=== PATIENT | female | born 1955 | race Caucasian/White ===

== ENCOUNTER 2017-03-15 09:35 | Observation (INO) | payer OTHER ==
[~2017-03-15] VITALS: Ht 157.5 cm; Wt 108.0 kg
[~2017-03-15 09:35] MED LIST: BIOTIN2500 MCG PO; CALCIUM600 MG PO; CENTRUM SILVER1 EAC3 PO; HYDROCHLOROTHIA25 MG PO; LISINOPRIL20 MG PO; PROBIOTIC & AC1 EACH PO; VITAMIN B-122500 MCG PO
[2017-03-15] MEDS ORDERED: HYDROMORPHONE 1MG/1ML INJ IV STA (09:50)
[2017-03-15] MEDS ORDERED: ONDANSETRON HCL INJ 2 MG/ML VIAL IV STA ×2 (09:50→12:16)
[2017-03-15] MEDS ORDERED: SODIUM CHLORIDE 0.9% 1000ML 1,000 ML IV SCH ×2 (10:00→12:46)
[2017-03-15] MEDS ORDERED: HYDROMORPHONE 2MG/ML INJ ONE (10:09)
[2017-03-15 10:56] LABS: BASOPHILS # (AUTO) 0.1 (0.0-0.1); BASOPHILS % 0.6 % (0.0-1.0); EOSINOPHILS # (AUTO) 0.2 (0.0-0.4); EOSINOPHILS % 2.2 % (0.0-6.0); HEMATOCRIT 43.9 % (34.2-44.1); HEMOGLOBIN 14.6 g/dL (12.0-16.0); LYMPHOCYTES # (AUTO) 2.7 (1.0-3.2); LYMPHOCYTES % 30.9 % (18.0-39.1); MEAN CORPUSCULAR HEMOGLOBIN 29.7 pg (28-32); MEAN CORPUSCULAR HGB CONC 33.3 g/dL (31-35); MEAN CORPUSCULAR VOLUME 89.2 fL (81-99); MONOCYTES # (AUTO) 0.4 (0.2-0.8); MONOCYTES % 4.1 % (4.4-11.3); NEUTROPHILS # (AUTO) 5.4 (2.1-6.9); NEUTROPHILS % 61.9 % (38.7-80.0); PLATELET COUNT 233 x10e3/uL (140-360); RED BLOOD COUNT 4.92 x10e6/uL (3.6-5.1); RED CELL DISTRIBUTION WIDTH 13.8 % (11.7-14.4)
[2017-03-15 11:29] LABS: ALANINE AMINOTRANSFERASE 18 IU/L (0-55); ALBUMIN/GLOBULIN RATIO 1.1 (0.8-2.0); ALKALINE PHOSPHATASE 77 IU/L (40-150); ANION GAP 15.3 mmol/L (8-16); BLOOD UREA NITROGEN 17 mg/dL (7-26); BUN/CREATININE RATIO 24 (6-25); CALCIUM 9.6 mg/dL (8.4-10.2); CARBON DIOXIDE 24 mmol/L (22-29); CHLORIDE 106 mmol/L (98-107); CREATININE, SERUM 0.71 mg/dL (0.57-1.11); EST GLOMERULAR FILTRATION RATE > 60 ML/MIN (60-); GLUCOSE 110 mg/dL (74-118); POTASSIUM 3.3 mmol/L (3.5-5.1); SODIUM 142 mmol/L (136-145)
--- NOTE | 2017-03-15 12:09 | Diagnostic Imaging Report ---
PROCEDURE: CT ABDOMEN AND PELVIS WITHOUT CONTRAST COMPARISON:None. INDICATIONS:HERNIA PAIN, RUPTURE HERNIA TECHNIQUE: Axial CT images through the abdomen and pelvis were obtained without intravenous contrast. Coronal and sagittal reformations were created. FINDINGS: Lung bases: Clear. Visualized portion of the mediastinum is normal. Liver: Normal attenuation without mass or ductal dilatation. Spleen: Normal size and attenuation without mass. Biliary: The gallbladder is absent. No biliary ductal dilatation. Pancreas: No calcifications, soft tissue mass, or ductal dilatation Adrenal Glands: No evidence of mass Right kidney: A pixel sized calculus is in the interpolar calyx. No cortical mass, or hydronephrosis. Left kidney: No renal calculus. A cyst in the interpolar cortex measures 3.0 cm. No hydronephrosis. Bladder/ureters: The bladder is normal. No ureteral dilatation or calculus. Vasculature: The aorta is normal in diameter with diffuse atherosclerotic calcifications. GI: Postoperative changes of the stomach are suggestive of sleep gastrectomy. The stomach is not dilated. There are multiple fluid distended small bowel loops in the midabdomen measuring up to 2.7 cm. The small bowel loops can be traced into a balance fat-containing left paraumbilical hernia. A transition point is within the hernia itself. The hernia aperture is 4 cm. Or there is inflammation and a trace amount of fluid within the hernia sac. The exiting bowel loops are collapsed. There is no evidence of pneumatosis. The large bowel contains a small amount of stool in the ascending colon. There are diverticula in the descending colon and sigmoid colon. There is no dilatation or mural thickening. The appendix is normal. Peritoneum/Retroperitoneum: No free fluid or fluid collection. No free air. No lymphadenopathy. MSK: Degenerative changes of the spine without compression deformities or listhesis. There are no lytic or blastic lesions. A fat-containing hernia in the posterior left flank has an aperture 2.2 cm. CONCLUSION: 1. Incarcerated periumbilical hernia with resulting small bowel obstruction. 2. Diverticulosis coli. No bowel obstruction. 3. Tiny right intrarenal calculus. 4. Cholecystectomy. Normal biliary tree. Dictated by: Rigo Kearney M.D. on 03/15/2017 at 12:16 Electronically approved by: Rigo Kearney M.D. on 03/15/2017 at 12:16
[2017-03-15] MEDS ORDERED: HYDROMORPHONE 2MG/ML INJ IV ONE (12:30)
[2017-03-15] MEDS: SODIUM CHLORIDE 0.9% 250ML IRRIG IR SCH ×4 (13:00→20:30)
[2017-03-15] MEDS ORDERED: HYDROMORPHONE 1MG/1ML INJ IV PRN (13:00)
[2017-03-15] MEDS: ONDANSETRON HCL INJ 2 MG/ML VIAL IV PRN ×2 (14:53→20:15)
[2017-03-15] MEDS: HYDROMORPHONE 2MG/ML INJ IV PRN ×2 (14:54→20:15)
[2017-03-15] MEDS ORDERED: DEXTROSE IV ONE (15:54)
[2017-03-15] MEDS ORDERED: CEFOXITIN IV ONE (15:54)
[2017-03-15] MEDS: DEXTROSE 5%/LACTATED RINGERS 1,000 ML IV SCH ×2 (16:22→22:32)
[2017-03-15] MEDS ORDERED: MORPHINE SULFATE 5 MG/ML VIAL IV PRN (16:30)
[2017-03-15] MEDS ORDERED: FENTANYL CITRATE/PF 100MCG/2 ML INJ ONE ×2 (16:54→18:34)
--- NOTE | 2017-03-15 17:18 | Consultation ---
DATE OF CONSULTATION: March 15, 2017 HISTORY OF PRESENT ILLNESS: Patient is a 61-year-old female who presents with complaints of pain and swelling at the site of a known hernia. She has associated nausea and vomiting. Symptoms started this morning. She had a CT of the abdomen and pelvis which revealed findings suggestive of a small-bowel obstruction and incarcerated hernia causing the small-bowel obstruction. PAST MEDICAL HISTORY: Significant for multiple previous surgeries. She has had previous gastric sleeve, previous cholecystectomy, previous section, previous knee surgery. History of hypertension. MEDICATIONS AT HOME: Biotin, calcium carbonate, vitamin B12, hydrochlorothiazide, probiotic, lisinopril, vitamins. ALLERGIES: SHE HAS AN ALLERGY TO IODINE. FAMILY HISTORY: Noncontributory. SOCIAL HISTORY: The patient does not smoke cigarettes and does not drink alcohol. REVIEW OF SYSTEMS: As stated above, otherwise negative. PHYSICAL EXAMINATION GENERAL: The patient is awake and alert, in no distress. VITAL SIGNS: Normal. She is not tachycardic. HEENT: No scleral icterus. NECK: No masses. LUNGS: Equal breath sounds are clear bilaterally. CARDIAC: Regular rate and rhythm with no murmur. ABDOMEN: Tender at the site of the hernia, which is just above and to the left of the umbilicus. This is not reducible. There are multiple healed surgical wounds. EXTREMITIES: No edema. LABORATORY DATA: The white blood count is 8.79 with normal differential, hemoglobin 14.6, hematocrit 43.9. Chemistries are essentially normal, except for slightly low potassium. ASSESSMENT: A 61-year-old female with incarcerated ventral hernia with small-bowel obstruction. PLAN: Surgery today to repair the hernia. Possible bowel resection. The procedure was explained to the patient including risks, benefits and alternatives. She understands the procedure. She has had an opportunity to ask questions. Thank you for asking me to see Ms. Shaffer. Job#: [id number]
--- NOTE | 2017-03-15 17:48 | Operative Report ---
DATE OF PROCEDURE: March 15, 2017 PREOPERATIVE DIAGNOSIS: Small bowel obstruction; incarcerated ventral hernia. POSTOPERATIVE DIAGNOSIS: Small bowel obstruction; incarcerated ventral hernia. PROCEDURE: Repair of incarcerated ventral hernia with release of small bowel obstruction. BARREL AND RECEIVER ALIGNER: none. ANESTHESIA: General endotracheal. INDICATIONS AND FINDINGS: The patient is a 61-year-old female presenting with complaints of abdominal pain at the site of a known hernia with associated nausea and vomiting. Workup revealed small bowel obstruction with incarcerated small bowel. Per surgery the patient was found to have hernia with incarcerated omentum. There was a large amount of fluid in the hernia. The bowel was reduced in the peritoneal cavity as the surgery started, but all of the bowel was dilated and all appeared viable. TECHNIQUE: After adequate general endotracheal anesthesia with the patient in the supine position, the abdomen was prepped and draped in sterile fashion with Carrillo solution. Transverse incision was made over the area of the hernia and carried down through subcutaneous tissue. The herniated mass identified. It was dissected free down to the fascia and freed from the fascia throughout the circumference of the hernia defect. Hernia sac was opened. Within the hernia sac there was some omentum and fluid. The bowel seen to reduce into the peritoneal cavity. The bowel was examined. All appeared viable, although small bowel was somewhat dilated. There were a few adhesions involving omentum which were lysed and the hernia mass was then all reduced completely in the peritoneal cavity. Hernia was then repaired directly transversely with running suture of number 1 Prolene. Hemostasis seen to be adequate. The wound was irrigated with saline. It was then closed with 2-0 Vicryl in the subcutaneous tissue and ozzy for the skin. Sterile dressing was applied. Patient tolerated procedure well. Estimated blood loss was 10 mL. There were no complications. All counts were correct. Patient was taken to the recovery room in satisfactory condition. Job#: [id number]
[2017-03-15] MEDS: CEFOXITIN 1GM/ DEXTROSE 50ML 50 ML IV SCH (18:00)
[2017-03-15] MEDS ORDERED: GLYCOPYRROLATE INJ 1MG/ 5 ML SYR ONE (18:11)
[2017-03-15] MEDS ORDERED: PROPOFOL IV EMULSION 10 MG/ML 20 ML VIAL ONE (18:11)
[2017-03-15] MEDS ORDERED: SEVOFLURANE INHAL SOLN 250 ML PEN BTL ONE (18:11)
[2017-03-15] MEDS ORDERED: ROCURONIUM BROMIDE 10 MG/ML 5ML VIAL ONE (18:11)
[2017-03-15] MEDS ORDERED: SUCCINYLCHOLINE 200 MG/10 ML SYR ONE (18:11)
[2017-03-15] MEDS ORDERED: LIDOCAINE HCL 2% LOCAL INJ 5 ML SDV VIAL INJ ONE (18:11)
[2017-03-15] MEDS ORDERED: NEOSTIGMINE 1 MG/ML 10ML VIAL ONE (18:11)
[2017-03-15] MEDS ORDERED: MIDAZOLAM HCL 2 MG/2 ML VIAL ONE (18:34)
[2017-03-15 20:18] VITALS: BP 183/81
[2017-03-15 21:38] VITALS: BP 183/81
[2017-03-15 21:40] VITALS: BP 183/81
[2017-03-16] VITALS (8 sets, daily range): BP systolic 138–186; BP diastolic 64–75
[2017-03-16] MEDS: HYDROMORPHONE 2MG/ML INJ IV PRN ×5 (00:26→23:25)
[2017-03-16] MEDS: CEFOXITIN 1GM/ DEXTROSE 50ML 50 ML IV SCH ×3 (00:26→11:57)
[2017-03-16] MEDS: ONDANSETRON HCL INJ 2 MG/ML VIAL IV PRN ×2 (00:26→05:41)
[2017-03-16] MEDS: SODIUM CHLORIDE 0.9% 250ML IRRIG IR SCH ×5 (01:00→21:00)
[2017-03-16 06:32] LABS: BASOPHILS % 0.2 % (0.0-1.0); EOSINOPHILS % 0.1 % (0.0-6.0); HEMATOCRIT 40.7 % (34.2-44.1); HEMOGLOBIN 13.1 g/dL (12.0-16.0); LYMPHOCYTES # (AUTO) 1.1 (1.0-3.2); LYMPHOCYTES % 8.1 % (18.0-39.1); MEAN CORPUSCULAR HEMOGLOBIN 29.5 pg (28-32); MEAN CORPUSCULAR HGB CONC 32.2 g/dL (31-35); MEAN CORPUSCULAR VOLUME 91.7 fL (81-99); MONOCYTES # (AUTO) 0.5 (0.2-0.8); MONOCYTES % 4.1 % (4.4-11.3); NEUTROPHILS # (AUTO) 11.3 (2.1-6.9); PLATELET COUNT 218 x10e3/uL (140-360); RED BLOOD COUNT 4.44 x10e6/uL (3.6-5.1); RED CELL DISTRIBUTION WIDTH 14.2 % (11.7-14.4)
[2017-03-16 06:55] LABS: ANION GAP 10.6 mmol/L (8-16); BLOOD UREA NITROGEN 12 mg/dL (7-26); BUN/CREATININE RATIO 16 (6-25); CALCIUM 8.8 mg/dL (8.4-10.2); CARBON DIOXIDE 26 mmol/L (22-29); CHLORIDE 108 mmol/L (98-107); CREATININE, SERUM 0.75 mg/dL (0.57-1.11); EST GLOMERULAR FILTRATION RATE > 60 ML/MIN (60-); GLUCOSE 133 mg/dL (74-118); POTASSIUM 3.6 mmol/L (3.5-5.1); SODIUM 141 mmol/L (136-145)
[2017-03-16] MEDS ORDERED: ACETAMINOPHEN 1000 MG/100 ML IV PRN (07:00)
[2017-03-16] MEDS: DEXTROSE 5%/LACTATED RINGERS 1,000 ML IV SCH ×2 (09:33→16:22)
[2017-03-17] VITALS (7 sets, daily range): BP systolic 134–150; BP diastolic 60–70
[2017-03-17] MEDS: DEXTROSE 5%/LACTATED RINGERS 1,000 ML IV SCH ×4 (00:22→16:37)
[2017-03-17] MEDS: SODIUM CHLORIDE 0.9% 250ML IRRIG IR SCH ×6 (01:00→21:00)
[2017-03-17 07:33] LABS: BASOPHILS % 0.3 % (0.0-1.0); EOSINOPHILS # (AUTO) 0.4 (0.0-0.4); EOSINOPHILS % 3.6 % (0.0-6.0); HEMATOCRIT 35.7 % (34.2-44.1); HEMOGLOBIN 11.6 g/dL (12.0-16.0); LYMPHOCYTES # (AUTO) 1.2 (1.0-3.2); LYMPHOCYTES % 11.7 % (18.0-39.1); MEAN CORPUSCULAR HEMOGLOBIN 30.2 pg (28-32); MEAN CORPUSCULAR HGB CONC 32.5 g/dL (31-35); MONOCYTES # (AUTO) 0.5 (0.2-0.8); MONOCYTES % 4.3 % (4.4-11.3); NEUTROPHILS # (AUTO) 8.3 (2.1-6.9); NEUTROPHILS % 79.8 % (38.7-80.0); PLATELET COUNT 185 x10e3/uL (140-360); RED BLOOD COUNT 3.84 x10e6/uL (3.6-5.1); RED CELL DISTRIBUTION WIDTH 14.4 % (11.7-14.4)
[2017-03-17] MEDS: HYDROCODONE/APAP 7.5MG-325MG 1 EA TAB PO PRN ×2 (18:07→23:00)
[2017-03-18] VITALS: BP 138/65
[2017-03-18] MEDS: SODIUM CHLORIDE 0.9% 250ML IRRIG IR SCH ×3 (01:00→09:00)
[2017-03-18 04:00] VITALS: BP 146/67
[2017-03-18 07:30] VITALS: BP 134/61
[2017-03-18 08:07] VITALS: BP 134/61
[2017-03-18] MEDS: HYDROCODONE/APAP 7.5MG-325MG 1 EA TAB PO PRN (10:33)
[2017-03-18 11:23] VITALS: BP 135/62
== END 2017-03-18 12:53 | disposition home or self-care (01) ==
LOC: ER 09:35 → OR 15:18 → IMCU 16:49
DX: K43.6 Other and unspecified ventral hernia with obstruction, without gangrene (principal); I10 Essential (primary) hypertension; K21.9 Gastro-esophageal reflux disease without esophagitis; E66.01 Morbid (severe) obesity due to excess calories; Z68.41 Body mass index [BMI] 40.0-44.9, adult; Z98.84 Bariatric surgery status; Z91.041 Radiographic dye allergy status
CPT/HCPCS: 36415 ×3; 49561; 74176; 80048; 80053; 83605; 85025 ×3; 87040; 93005; 96360; 96361 ×3; 96374; 96376; 99284; G0378 ×4; J1170 ×2; J2001; J2250; J2270; J2405 ×2; J2710; J7030; J7120 ×3

== ENCOUNTER → 2021-12-20 | Outpatient (CLI) | payer OTHER | LOC: MAMMO 08:52 | PROVIDERS: ATTEND Internal Medicine | DX: Z12.31 Encounter for screening mammogram for malignant neoplasm of breast (principal) | CPT/HCPCS: 77067 ==

== ENCOUNTER → 2022-02-12 | Outpatient (CLI) | payer OTHER | LOC: RAD 13:13 | PROVIDERS: ATTEND Internal Medicine | DX: M17.11 Unilateral primary osteoarthritis, right knee (principal) ==